=== PATIENT | male | born 1985 | race Caucasian/White ===

== ENCOUNTER 2020-06-07 09:55 | Outpatient (REF) | payer OTHER, SELFPAY ==
[2020-06-07 14:47] LABS: Alanine Aminotransferase 64 U/L (0-40); Albumin Level 4.4 g/dL (3.5-5.0); Alkaline Phosphatase 69 U/L (39-117); Anion Gap 15 (12-20); Aspartate Amino Transferase 61 U/L (5-37); Bilirubin Total 0.5 mg/dL (0.0-1.0); Blood Urea Nitrogen 13 mg/dL (9-16); Calcium 9.1 mg/dL (8.4-10.2); Carbon Dioxide 25 mmol/L (22-29); Chloride 103 mmol/L (96-108); Cholesterol 148 mg/dL; Estimated Glomerular Filt Rate > 60; Glucose Fasting 82 mg/dL (60-99); HDL Cholesterol 35 mg/dL; LDL Cholesterol Calculated 83 mg/dl; Potassium 4.9 mmol/l (3.3-5.1); Sodium 138 mmol/L (135-145); Total Protein 7.2 g/dL (6.5-8.0); Triglycerides 153 mg/dL
[2020-06-07 14:55] LABS: TSH reflex Free T4 1.15 mIU/mL (0.32-4.0)
== END 2020-06-07 09:56 | disposition home or self-care (01) ==
LOC: HO.WFDLDS 09:55
PROVIDERS: Visit Provider Family Medicine
DX: Z00.00 Encounter for general adult medical examination without abnormal findings (principal); S43.006A Unspecified dislocation of unspecified shoulder joint, initial encounter; M75.80 Other shoulder lesions, unspecified shoulder
CPT/HCPCS: 80053; 80061; 84443; 99202

== ENCOUNTER 2020-07-19 07:00 | Outpatient (RCR) | payer OTHER, SELFPAY ==
--- NOTE | 2020-07-05 08:39 | MHC.PT.EP ---
[facility] [place] Office [place] Office [place] Office [address] [place] [address] [address] Sc[address] [phone] F: [phone] F: [phone] F: [phone] F: [phone] Physical Therapy Plan of Care Date of Evaluation: 07/05/20 Date of Surgery: NA Diagnosis: L SHOULDER DISLOCATION Assessment: Pt IS 35 YO RHD M REFERRED TO PT FROM [facility]THO AFTER 3 EPISODES OF L SHLDER DISLOCATION (1 X IN HS PLAYING FOOTBALL POPPED BACK INTO PLACE BY CLOCK MAKER, 2ND TIME OVER THIS PAST SUMMER CATCHING BASKETBALL OVERHEAD TO ER AND RELOCATED, THNE 2-3 WEEKS LATER SLIPPED IN SHOWER AND DISLOCATED AND RELOCATED IT). 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 Pt PRESENTS WITH OVERALL GOOD STRENGTH IN L SHLDER WITH MMT (BUT CHALLENGED WITH SHLDER ER WITH TB), Pt WITH LIMITED END RANGE OF MOSTION L SHLDER WITH SOME DISCOMFORT, NO SPECIFIC REPORTS OF FEELING OF DISLOCATION/ APPREHENSION WITH SHLDER END RANGES. Pt IS CURRENTLY WORKING OUT AT [employer] WITH A CLOCK MAKER 3-4X/WK. SHOULD BENEFIT FROM PT 1X/WK X 3-4 WEEKS TO SUPPLEMENT THIS PROGRAM WITH POSTERIOR STRENGTHENING, STABILIZATION EXS, ST WORK/KT PRN Frequency and Duration: The patient will be seen 1X/WK X 3-4 WEEKS Short Term Goals: 1. I HEP WITH DC PLAN 2.INCREASED AWARENESS POSTURE/SHLDER CARE 3. 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 INCREASED END ROM L SHLDER 5-10 DEGREES T/O 2. LESS PAIN L SHLDER WITH ADLS AT LEAST 50% Treatment Plan: Modalities to reduce pain, spasms and effusion. Manual therapy to restore motion and function. Therapeutic exercise to improve strength and flexibility. Neuromuscular re-education for posture and balance. Therapeutic activities to return to functional activities of daily living. Please sign and return to therapist. Thank you for your referral.
--- NOTE | 2020-08-04 14:13 | MHC.PT.DC ---
[facility] [place] Office [place] Office [place] Office [address] Cosme Scherer [address] [phone] F: [phone] F: [phone] F: [phone] F: [phone] Physical Therapy Discharge Report Diagnosis: L SHOULDER DISLOCATION Date of Surgery: NA Date of Evaluation: 07/05/20 Date of Discharge: 08/04/20 Treatments to Date: 3 Cancellations to Date: 0 No Shows to Date: 0 Discharge Status: Independent with HEP Patient Elected to Stop Discharge Summary: Pt SEEN FOR INIT EVAL AND 2 FU VISITS THEN NO SHOWED HIS LAST SCHEDULED VISIT ON 07/26/20 (THIS WAS TO BE HIS LAST VISIT FOR HEP AND GOAL REVIEW). SPOKE WITH Pt ON 08/02/19 AND HE REPORTED THAT HE HAS BEEN BUSY AT WORK AND WASNT ABLE TO GET UP FOR 7 AM APPTS. GAVE Pt THE OPTION OF 1 MORE VISIT TO REV HOME PROGRAM VS DC. HE ASKED TO BE ABLE TO THINK ABOUT IT AND THIS PT REQUESTED HE CALL BY END OF DAY (08/02/19) WITH DECISION (SO CHART CAN BE DISCHARGED IF HE DECIDED NOT TO COME BACK) Pt DID NOT CALL BACK SO WILL DC HIS CHART AT THIS TIME. AT THE LAST SESSION ON 07/19/20 Pt REPORTED NO SHLDER PAIN AND PER ASSESSMENT.. CHALLENGED WITH ENDURANCE WORK .WAS ABLE TO DEVON INCREASE IN BAND RESISTANCE, INITIAL POSITIVE RESPONSE TO KT . 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 Thank you for your referral.
== END 2020-08-23 15:19 | disposition other institution (70) ==
LOC: HO.PTWFD 07:00
PROVIDERS: PCP Family Medicine; Visit Provider Physician Assistant
DX: S43.006D Unspecified dislocation of unspecified shoulder joint, subsequent encounter (principal)
CPT/HCPCS: 97110; 97161

== ENCOUNTER 2020-08-01 16:36 | Outpatient (REF) | payer OTHER, SELFPAY ==
--- NOTE | 2020-08-01 16:44 | US_ITS ---
EXAMINATION: US SCROTUM CLINICAL INFORMATION: Other specified disorders of the male genital organs. COMPARISON: None TECHNIQUE: A sonogram of the scrotum was performed assessing sousa-scale appearance and color Doppler flow. Spectral Doppler analysis of the arterial and venous flow were performed in the testes bilaterally. FINDINGS: RIGHT: Right testicle measures 4.6 x 2.4 x 3.1 cm, volume 17.7 mL. No focal testicular parenchymal lesions are visualized. Spectral Doppler analysis of the arterial and venous flow is normal in the right testis. Right epididymal head is normal in size. No right varicocele is seen. There is a very small right hydrocele. Right epididymal Doppler flow is normal. LEFT: Left testicle measures 4.4 x 2.7 x 3.4 cm, volume 21.2 mL. There are several small clustered 1-2 mm in size echogenic foci in the inferior left testicle probably representing calcifications, image 21. No other focal testicular parenchymal lesions are visualized. Spectral Doppler analysis of the arterial and venous flow is normal in the left testis. Left epididymal head is normal in size. There is a small left epididymal head cyst. This measures 2 x 2 x 4 mm. There is a small appendix epididymis. No left hydrocele or varicocele is seen. Left epididymal Doppler flow is normal. US/US scrotum IMPRESSION: Very small right hydrocele. Several small calcifications in the left testicle. This does not meet ultrasound criteria for testicular microlithiasis. Small left epididymal head cyst.
== END 2020-08-01 16:37 | disposition home or self-care (01) ==
LOC: HO.US 16:36
PROVIDERS: PCP Family Medicine; Visit Provider Family Medicine
DX: N50.89 Other specified disorders of the male genital organs (principal)
CPT/HCPCS: 76870

== ENCOUNTER 2021-10-31 09:50 | Outpatient (REF) | payer OTHER, SELFPAY ==
[2021-10-31 11:09] LABS: Appearance Urine HAZY; Color Urine YELLOW; Glucose Urine UA NEG (NEG); Leukocyte Esterase Urine NEG (NEG); Nitrite Urine NEG (NEG); PH 5.5 (5.0-8.0); Specific Gravity - Urine >= 1.030 (1.005-1.025); Urine Blood 1+ (NEG); Urine Ketones NEG (NEG); Urine Protein NEG (NEG-TRACE)
[2021-10-31 11:19] LABS: Mucus Urine TRACE /LPF; Squamous Epithelial Cell Urine 1+ /LPF; WBC Urine 0 /HPF (0-4)
[2021-10-31 12:16] LABS: Alanine Aminotransferase 49 U/L (0-40); Albumin Level 4.5 g/dL (3.5-5.0); Alkaline Phosphatase 81 U/L (39-117); Anion Gap 13 (12-20); Aspartate Amino Transferase 39 U/L (5-37); Bilirubin Total 0.6 mg/dL (0.0-1.0); Blood Urea Nitrogen 12 mg/dL (9-16); Carbon Dioxide 26 mmol/L (22-29); Chloride 105 mmol/L (96-108); Cholesterol 168 mg/dL; Estimated Glomerular Filt Rate > 60; Glucose Random 96 mg/dL (60-115); HDL Cholesterol 43 mg/dL; LDL Cholesterol Calculated 93 mg/dl; Potassium 4.5 mmol/L (3.3-5.1); Sodium 139 mmol/L (135-145); Total Protein 7.4 g/dL (6.5-8.0); Triglycerides 162 mg/dL
[2021-11-02 02:37] LABS: LDL Cholesterol Direct 91 mg/dL (<100)
== END 2021-10-31 09:51 | disposition home or self-care (01) ==
LOC: HO.WFDLDS 09:50
PROVIDERS: Visit Provider Family Medicine
DX: Z00.00 Encounter for general adult medical examination without abnormal findings (principal); R74.8 Abnormal levels of other serum enzymes
CPT/HCPCS: 36415; 80053; 80061; 81001; 83721; 84443